=== PATIENT | male | born 1950 | race Caucasian/White ===

== ENCOUNTER 2023-03-22 20:11 | Emergency (ER) | payer BC, SELFPAY ==
[2023-03-22] VITALS (16 sets, daily range): BP systolic 130–185; BP diastolic 79–93; PULSE 86–100; RESP 18–41; O2SAT 95–98; BMI 29.6
[2023-03-22 20:43] LABS: Add Manual Diff / Slide Review NO; Basophils Absolute Auto 100 /uL (0-100); Basophils Percent Auto 0.8 % (0-2); Eosinophils Absolute Auto 300 /uL (0-450); Eosinophils Percent Auto 4.7 % (2-4); Hematocrit 39.6 % (41-53); Hemoglobin 13.6 g/dL (13.5-17.5); Lymphocytes Absolute Auto 2100 /uL (1100-4500); Lymphocytes Percent Auto 30.7 % (25-40); Mean Corpuscular HGB Conc 34.2 % (30-36); Mean Corpuscular Hemoglobin 32.6 PG (26-34); Mean Corpuscular Volume 95.2 fL (80-100); Monocytes Absolute Auto 800 /uL (0-900); Neutrophils Absolute Auto 3500 /uL (1500-7000); Neutrophils Percent Auto 51.8 % (50-75); Platelet Count 202 X10^3/uL (150-400); Red Blood Cell Count 4.16 X10^6/uL (4.5-5.9); Red Cell Distribution Width 13.2 % (11.6-14.8); White Blood Cell Count 6.8 X10^3/uL (4.5-11.0)
[2023-03-22] MEDS: SODIUM CHLORIDE 0.9% 1,000 ML 1000 ML IV ×2 (20:44→22:03)
[2023-03-22 20:56] LABS: Alanine Aminotransferase 32 IU/L (<50); Albumin 3.9 g/dL (3.5-5.0); Albumin Globulin Ratio 1.1 (1.0-2.8); Alkaline Phosphatase 105 U/L (38-126); Aspartate Aminotransferase 36 IU/L (17-59); Bilirubin Total 0.2 mg/dL (0.2-1.3); Blood Urea Nitrogen 17 mg/dL (9-20); Calcium 8.8 mg/dL (8.4-10.2); Carbon Dioxide 22 mmol/L (22-32); Chloride 97 mmol/L (98-107); Estimated Glomerular Filt Rate > 60 mL/min (>60); Globulin 3.4 g/dL (1.7-4.1); Glucose 89 mg/dL (80-110); HEMOLYSIS 48 (0-50); Magnesium 1.9 mg/dL (1.6-2.3); Sodium 131 mmol/L (137-145); Total Protein 7.3 g/dL (6.3-8.2)
[2023-03-22 21:00] LABS: D Dimer 676 ng/ml (<500)
--- NOTE | 2023-03-22 21:44 | ED_ITS ---
HPI - Syncope General Chief Complaint: Syncope Stated Complaint: syncope Time Seen by Provider: 03/22/23 20:14 Source: patient Mode of arrival: EMS History of Present Illness HPI narrative: 72-year-old male nonsmoker with history of hypertension and hyperlipidemia presents by EMS for evaluation of a syncopal episode. He states that he had largely been in his normal state of health and stood up after being seated for some extended period of time, felt like he may fall, had a large coughing episode and then reach forward to prevent a fall, the next thing he noticed was his stating over him telling him he had passed out. On arrival EMS found him awake and alert and oriented. They did orthostatics and found him to be symptomatic upon sitting, an IV was placed and fluids were started. He denies any injury as a consequence, no head, neck or back pain. No blurred vision or trouble with speech. No runny nose or sore throat. Patient recently traveled from [place] in in the aftermath developed COVID which he is just now getting over. He states that at baseline he coughs a lot but it seems to be worse since COVID. He denies any vomiting or diarrhea, no new medications or change in diet. No palpitations or chest pain. No history of blood clot. No lower extremity pain, swelling or redness Related Data Previous Rx's Medication Instructions Recorded allopurinol 300 mg tablet 300 mg PO DAILY #90 tabs 03/15/23 atorvastatin 40 mg tablet 40 mg PO DAILY #90 tabs 03/15/23 losartan 50 mg tablet 50 mg PO DAILY #90 tabs 03/15/23 metoprolol succinate 25 mg 25 mg PO DAILY #90 tabs 03/15/23 tablet,extended release 24 hr Allergies Allergy/AdvReac Type Severity Reaction Status Date / Time No Known Drug Allergies Allergy Unverified 03/15/23 10:55 Review of Systems Review of Systems Narrative: GENERAL: Denies chills, fatigue, malaise, fever, sweats. HEENT: Denies sinus pain, ear pain, sore throat, difficulty swallowing, dizziness. RESPIRATORY: Denies dyspnea, cough, wheezing, hemoptysis, sputum. CARDIOVASCULAR: See HPI GASTROINTESTINAL: Denies nausea, vomiting, abdominal pain, diarrhea, constipation, melena. : Denies dysuria, frequency, incontinence, hematuria, urinary retention. MUSCULOSKELETAL: denies weakness, joint pain, or bony pain SKIN: Denies rash, skin lesions, or other NEUROLOGIC: Denies weakness, headache, numbness, change in speech, confusion, seizures, incoordination. PSYCHIATRIC: No concerning psychosocial issues. 12 point review of systems is negative except for those stated above Patient History Medical History (Updated 03/22/23 @ 23:09 by Sang Gordillo DO) Chronic cough Hypertension Mixed hyperlipidemia Sleep apnea Family History (Updated 03/14/23 @ 20:31 by Mahi Bassett) Father Cancer Mother Cancer Social History Smoking Status: Never smoker Smoking Status: Never smoker Exam Narrative Exam Narrative: GENERAL: [72] year old patient appears stated age. Well-developed patient, in mild distress. HEAD: Atraumatic. Normocephalic. No swelling, redness, contusion or laceration EYES: Pupils equal round and reactive. Extraocular motions intact. No scleral icterus. No injection or drainage. ENT: Nose without bleeding, purulent drainage. Throat without erythema, tonsillar hypertrophy or exudate. Airway patent. NECK: Trachea midline. Non tender, no step-offs or crepitance CARDIOVASCULAR: Regular rate and rhythm without murmurs, gallops, or rubs. RESPIRATORY: Clear to auscultation. Breath sounds equal bilaterally. No wheezes, rales, or rhonchi. GASTROINTESTINAL: Abdomen soft, non-tender, nondistended. EXTREMITIES: No edema or joint tenderness. BACK: Nontender without deformity or crepitance. No flank tenderness. NEURO: AOx3. SKIN: No rash or erythema of visible areas Initial Vital Signs Initial Vital Signs: Vital Signs Pulse Rate 98 H 03/22/23 20:15 Respiratory Rate 18 03/22/23 20:15 Blood Pressure 185/89 H 03/22/23 20:15 Pulse Oximetry 98 03/22/23 20:15 Oxygen Delivery Method Room Air 03/22/23 20:15 Course Orders Ordered: ED Orders 03/22/23 20:14 EKG-12 Lead Stat 03/22/23 20:38 Complete Blood Count AUTO DIFF Stat Comprehensive Metabolic Panel Stat D Dimer Stat Magnesium Stat Discontinued Medications Sodium Chloride (Normal Saline 0.9%) 1,000 mls @ 1,000 mls/hr IV BOLUS ONE Stop: 03/22/23 21:13 Last Infusion: 03/22/23 22:01 Dose: 0 mls/hr Documented By: Admin: 03/22/23 20:44 Dose: 1,000 mls/hr Documented By: OSMAN Sodium Chloride (Normal Saline 0.9%) 1,000 mls @ 1,000 mls/hr IV BOLUS ONE Stop: 03/22/23 22:39 Last Infusion: 03/22/23 22:45 Dose: 0 mls/hr Documented By: Admin: 03/22/23 22:03 Dose: 1,000 mls/hr Documented By: OSMAN Vital Signs Vital signs: Vital Signs - 8 hr 03/22/23 20:15 03/22/23 20:16 03/22/23 20:30 Pulse Rate 98 H 94 H 90 Pulse Rate [Orthostatic Lying] Pulse Rate [Orthostatic Sitting] Pulse Rate [Orthostatic Standing] Respiratory Rate 18 23 23 Blood Pressure 185/89 H Blood Pressure [Orthostatic Lying] Blood Pressure [Orthostatic Sitting] Blood Pressure [Orthostatic Standing] Pulse Oximetry 98 98 97 Oxygen Delivery Method Room Air 03/22/23 21:00 03/22/23 21:39 03/22/23 21:30 Pulse Rate 100 H 90 Pulse Rate [Orthostatic Lying] 89 Pulse Rate [Orthostatic Sitting] 94 H Pulse Rate [Orthostatic Standing] 99 H Respiratory Rate 41 H 19 Blood Pressure Blood Pressure [Orthostatic Lying] 154/86 H Blood Pressure [Orthostatic Sitting] 136/83 Blood Pressure [Orthostatic Standing] 130/80 Pulse Oximetry 95 96 Oxygen Delivery Method 03/22/23 21:34 03/22/23 21:34 03/22/23 21:36 Pulse Rate 89 97 H Pulse Rate [Orthostatic Lying] Pulse Rate [Orthostatic Sitting] Pulse Rate [Orthostatic Standing] Respiratory Rate Blood Pressure 154/86 H Blood Pressure [Orthostatic Lying] Blood Pressure [Orthostatic Sitting] Blood Pressure [Orthostatic Standing] Pulse Oximetry 96 97 Oxygen Delivery Method 03/22/23 21:36 03/22/23 21:37 03/22/23 21:37 Pulse Rate 99 H Pulse Rate [Orthostatic Lying] Pulse Rate [Orthostatic Sitting] Pulse Rate [Orthostatic Standing] Respiratory Rate Blood Pressure 136/83 130/80 Blood Pressure [Orthostatic Lying] Blood Pressure [Orthostatic Sitting] Blood Pressure [Orthostatic Standing] Pulse Oximetry 96 Oxygen Delivery Method 03/22/23 22:00 03/22/23 22:00 03/22/23 22:30 Pulse Rate 86 Pulse Rate [Orthostatic Lying] Pulse Rate [Orthostatic Sitting] Pulse Rate [Orthostatic Standing] Respiratory Rate 20 Blood Pressure 135/83 146/90 H Blood Pressure [Orthostatic Lying] Blood Pressure [Orthostatic Sitting] Blood Pressure [Orthostatic Standing] Pulse Oximetry 96 Oxygen Delivery Method 03/22/23 22:30 03/22/23 22:53 03/22/23 22:45 Pulse Rate 86 88 Pulse Rate [Orthostatic Lying] 88 Pulse Rate [Orthostatic Sitting] 94 H Pulse Rate [Orthostatic Standing] 96 H Respiratory Rate 20 20 Blood Pressure Blood Pressure [Orthostatic Lying] 141/84 H Blood Pressure [Orthostatic Sitting] 143/83 H Blood Pressure [Orthostatic Standing] 142/79 H Pulse Oximetry 97 95 Oxygen Delivery Method 03/22/23 22:45 03/22/23 22:46 03/22/23 22:46 Pulse Rate 93 H Pulse Rate [Orthostatic Lying] Pulse Rate [Orthostatic Sitting] Pulse Rate [Orthostatic Standing] Respiratory Rate 20 Blood Pressure 141/84 H 143/83 H Blood Pressure [Orthostatic Lying] Blood Pressure [Orthostatic Sitting] Blood Pressure [Orthostatic Standing] Pulse Oximetry 95 Oxygen Delivery Method 03/22/23 22:47 03/22/23 22:47 03/22/23 23:00 Pulse Rate 94 H Pulse Rate [Orthostatic Lying] Pulse Rate [Orthostatic Sitting] Pulse Rate [Orthostatic Standing] Respiratory Rate 20 Blood Pressure 142/79 H 153/93 H Blood Pressure [Orthostatic Lying] Blood Pressure [Orthostatic Sitting] Blood Pressure [Orthostatic Standing] Pulse Oximetry 96 Oxygen Delivery Method 03/22/23 23:00 Pulse Rate 91 H Pulse Rate [Orthostatic Lying] Pulse Rate [Orthostatic Sitting] Pulse Rate [Orthostatic Standing] Respiratory Rate 20 Blood Pressure Blood Pressure [Orthostatic Lying] Blood Pressure [Orthostatic Sitting] Blood Pressure [Orthostatic Standing] Pulse Oximetry 95 Oxygen Delivery Method MDM - Syncope Lab Data 03/22/23 20:38 03/22/23 20:38 Labs: Lab Results 03/22/23 03/22/23 03/22/23 Range/Units 20:38 20:38 20:38 WBC 6.8 (4.5-11.0) X10^3/uL RBC 4.16 L (4.5-5.9) X10^6/uL Hgb 13.6 (13.5-17.5) g/dL Hct 39.6 L (41-53) % MCV 95.2 (80-100) fL MCH 32.6 (26-34) PG MCHC 34.2 (30-36) % RDW 13.2 (11.6-14.8) % Plt Count 202 (150-400) X10^3/uL Neut % (Auto) 51.8 (50-75) % Lymph % (Auto) 30.7 (25-40) % Mcdowell % (Auto) 12.0 (3-14) % Eos % (Auto) 4.7 H (2-4) % Baso % (Auto) 0.8 (0-2) % Neut # (Auto) 3500 (2951-4097) /uL Lymph # (Auto) 2100 (1491-2016) /uL Mcdowell # (Auto) 800 (0-900) /uL Eos # (Auto) 300 (0-450) /uL Baso # (Auto) 100 (0-100) /uL D-Dimer 676 H (<500) ng/ml Sodium 131 L (137-145) mmol/L Potassium 4.0 (3.4-5.1) mmol/L Chloride 97 L (98-107) mmol/L Carbon Dioxide 22 (22-32) mmol/L BUN 17 (9-20) mg/dL Creatinine 0.74 (0.66-1.25) mg/dL Estimated GFR > 60 (>60) mL/min BUN/Creatinine Ratio 23.0 H (6-22) Glucose 89 (80-110) mg/dL Calcium 8.8 (8.4-10.2) mg/dL Magnesium 1.9 (1.6-2.3) mg/dL Total Bilirubin 0.2 (0.2-1.3) mg/dL AST 36 (17-59) IU/L ALT 32 (<50) IU/L Alkaline Phosphatase 105 (38-126) U/L Total Protein 7.3 (6.3-8.2) g/dL Albumin 3.9 (3.5-5.0) g/dL Globulin 3.4 (1.7-4.1) g/dL Albumin/Globulin Ratio 1.1 (1.0-2.8) Urine Dip Bedside Urine Glucose Negative Bedside Urine Bilirubin - Negative Bedside Urine Ketone - Negative Urine Specific [place] 1.010 Bedside Urine Occult Blood - Negative Bedside Urine pH 6.0 Bedside Urine Protein - Negative Bedside Urine Urobilinogen - Negative Bedside Urine Nitrite - Negative Bedside Urine Leukocytes - Negative Esterase MDM Narrative Medical decision making narrative: [72] year old patient presents with syncopal episode Multiple etiologies for patient's symptoms considered including, but not limited to: [Dehydration versus vagal response versus cardiac arrhythmia versus pulmonary embolism versus other] Prior Charts reviewed in our EMR Primary Historian: patient Labs reviewed and interpreted by myself: No leukocytosis or left shift, no signs of anemia, electrolytes without any critical findings, D-dimer below age corrected cutoff Patient with reassuring history and physical exam. Syncopal episode with multiple diagnoses as noted above. Pulmonary embolism thought unlikely as D- dimer was below age corrected cutoff, no indication to further pursue with advanced imaging. Arrhythmia considered but patient states he felt it coming, reached out, has reassuring cardiac monitoring, EKG and electrolytes. Patient was relatively orthostatic on arrival for the medics and had a reproducible orthostasis here prior to fluids which improved after fluids. His syncopal episode seems to be likely multifactorial and stems from at least on some level dehydration, a change in position as he had been seated and his episode happened shortly after standing. Furthermore he states he had a coughing episode which likely increased vagal tone. Seizure also considered but thought unlikely as he had no tongue injury, loss of control of bladder and a very rapid return to baseline after his episode as opposed to a more classic postictal phase. Clovis patel agrees with diagnosis and plan, questions answered to his apparent satisfaction. Patient's symptoms improved over duration of stay with above-stated therapies. Findings and discharge diagnosis discussed with patient/family followed by verbalization of understanding Return precautions discussed with patient/family whom verbalize understanding of diagnosis and plan Discharge Plan Departure Patient Disposition: Home Clinical Impression: Syncope, Acute dehydration Instructions: DI for Syncope in Adults (Fainting), DI for Dehydration -- Adult Activity Restrictions/Additional Instructions: *You have been diagnosed with [syncope likely due to a combination of dehydration, coughing, change in position. As we discussed your history and physical exam as well as response to therapies and labs are very reassuring] *What to do: *Please continue to take your regular medications as directed. [ ] New medication prescriptions sent to your pharmacy: [ ] [ ] New medication written as a paper prescription [ ] No new medications given *Please follow up with your primary care provider in 2-3 days, call for an appointment. Let them know you were seen in the Emergency Department and that we ask that you be seen in follow up. We will electronically transmit a record of today's note if your PCP is in our system *If you do not have a primary care provider please contact the [facility] Resource line at [phone]. They will ask some questions about your medical history and help get you set up with a doctor in the community. *Return to Emergency Department if you should have any new, worsening or concerning symptoms, such as [fever greater than 101 F, shaking chills, worsening pain, persistent vomiting or other bothersome symptoms] Prescriptions: No Action allopurinol 300 mg tablet 300 mg PO DAILY Qty: 90 3RF atorvastatin 40 mg tablet 40 mg PO DAILY Qty: 90 3RF losartan 50 mg tablet 50 mg PO DAILY Qty: 90 3RF metoprolol succinate 25 mg tablet extended release 24 hr 25 mg PO DAILY Qty: 90 3RF Referrals: Erlinda Osorio DO [Primary Care Provider] - Stand Alone Forms: Patient Portal/API
== END 2023-03-22 23:20 | disposition home or self-care (01) ==
PROVIDERS: Emergency Provider Emergency Medicine; PCP Family Medicine
DX: R55 Syncope and collapse (principal); E86.0 Dehydration
CPT/HCPCS: 36415; 80053; 81003; 83735; 85025; 85379; 93005; 96360; 96361; 99284

== ENCOUNTER → 2023-04-14 12:37 | Outpatient (CLI) | payer BC, SELFPAY ==
--- NOTE | 2023-04-14 | DI.CT.S_ITS ---
PROCEDURE: CT CHEST WO CON INDICATIONS: Pulmonary fibrosis, unspecified TECHNIQUE: Noncontrast 5 mm thick sections acquired from the pulmonary apices to the posterior costophrenic angles. 1 mm lung window, 5 mm thick coronal and sagittal and 7 mm axial MIP reformats were then acquired. For radiation dose reduction, the following was used: automated exposure control, adjustment of mA and/or kV according to patient size. COMPARISON: None. FINDINGS: Image quality: Excellent. Lungs and pleura: Sub pleural reticulation with areas of bronchiectasis and ground-glass opacity are seen along the peripheral aspect of the bilateral lungs. No definite honeycombing identified. Calcified right middle lobe nodule. No pleural effusions or pneumothorax. Central and peripheral airways are patent and normal in caliber. Mediastinum: Heart size is normal. No pericardial effusion. Coronary artery calcifications. No mediastinal adenopathy by size criteria. Thoracic aorta and central pulmonary arteries are normal in size. Aortic arch is calcified. Esophagus is normal in caliber. No hiatal hernia. Bones and chest wall: No suspicious bony lesions. No vertebral body compression fractures. No axillary or supraclavicular adenopathy by size criteria. Thyroid gland is unremarkable. Abdomen: Visualized upper abdominal solid organs and bowel loops appear normal in the absence of contrast. IMPRESSION: Lung fibrosis with subpleural reticulation, bronchiectasis and ground-glass opacity without definite honeycombing. Further evaluation with high-resolution CT chest can be performed. Consider pulmonology consult. Approved by: Lalitha Lai M.D. on 04/14/2023 at 23:44
== END ==
PROVIDERS: PCP Family Medicine; Referring Provider Internal Medicine Pulmonary Disease; Visit Provider Internal Medicine Pulmonary Disease
DX: J84.10 Pulmonary fibrosis, unspecified (principal); J47.9 Bronchiectasis, uncomplicated
CPT/HCPCS: 71250

== ENCOUNTER → 2023-06-14 12:04 | Outpatient (CLI) | payer BC, SELFPAY ==
[2023-06-14 12:52] LABS: Add Manual Diff / Slide Review NO; Basophils Absolute Auto 0 /uL (0-100); Basophils Percent Auto 0.4 % (0-2); Eosinophils Absolute Auto 300 /uL (0-450); Eosinophils Percent Auto 3.6 % (2-4); Hematocrit 42.9 % (41-53); Hemoglobin 14.9 g/dL (13.5-17.5); Lymphocytes Absolute Auto 1600 /uL (1100-4500); Lymphocytes Percent Auto 22.8 % (25-40); Mean Corpuscular HGB Conc 34.7 % (30-36); Mean Corpuscular Hemoglobin 32.5 PG (26-34); Mean Corpuscular Volume 93.8 fL (80-100); Monocytes Absolute Auto 800 /uL (0-900); Monocytes Percent Auto 10.9 % (3-14); Neutrophils Absolute Auto 4500 /uL (1500-7000); Neutrophils Percent Auto 62.3 % (50-75); Platelet Count 233 X10^3/uL (150-400); Red Blood Cell Count 4.58 X10^6/uL (4.5-5.9); Red Cell Distribution Width 13.3 % (11.6-14.8); White Blood Cell Count 7.2 X10^3/uL (4.5-11.0)
[2023-06-14 13:15] LABS: BUN Creatinine Ratio 17.5 (6-22); Blood Urea Nitrogen 14 mg/dL (9-20); Calcium 9.6 mg/dL (8.4-10.2); Carbon Dioxide 27 mmol/L (22-32); Chloride 94 mmol/L (98-107); Cholesterol 163 mg/dL (140-199); Estimated Glomerular Filt Rate > 60 mL/min (>60); Glucose 106 mg/dL (80-110); HDL Cholesterol 87 mg/dL (40-60); HEMOLYSIS < 15 (0-50); LDL Cholesterol Calculated 62 mg/dL (<100); Potassium 4.8 mmol/L (3.4-5.1); Sodium 130 mmol/L (137-145); Triglycerides 68 mg/dL (35-150)
== END ==
PROVIDERS: PCP Family Medicine; Referring Provider Family Medicine; Visit Provider Family Medicine
DX: Z00.00 Encounter for general adult medical examination without abnormal findings (principal); E78.2 Mixed hyperlipidemia; I10 Essential (primary) hypertension; E87.1 Hypo-osmolality and hyponatremia; J84.10 Pulmonary fibrosis, unspecified
CPT/HCPCS: 36415; 80048; 80061; 85025

== ENCOUNTER → 2023-10-25 11:32 | Outpatient (CLI) | payer BC, SELFPAY ==
[2023-10-25 12:50] LABS: Alanine Aminotransferase 36 IU/L (<50); Albumin 4.4 g/dL (3.5-5.0); Albumin Globulin Ratio 1.5 (1.0-2.8); Alkaline Phosphatase 82 U/L (38-126); Aspartate Aminotransferase 39 IU/L (17-59); Bilirubin Total 0.7 mg/dL (0.2-1.3); Blood Urea Nitrogen 13 mg/dL (9-20); Carbon Dioxide 28 mmol/L (22-32); Chloride 100 mmol/L (98-107); Estimated Glomerular Filt Rate > 60 mL/min (>60); Globulin 2.9 g/dL (1.7-4.1); Glucose 83 mg/dL (80-110); HEMOLYSIS < 15 (0-50); Potassium 4.6 mmol/L (3.4-5.1); Sodium 131 mmol/L (137-145); Total Protein 7.3 g/dL (6.3-8.2)
== END ==
PROVIDERS: PCP Family Medicine; Referring Provider Internal Medicine Critical Care Medicine; Visit Provider Internal Medicine Critical Care Medicine
DX: J84.112 Idiopathic pulmonary fibrosis (principal); R05.3 Chronic cough; I10 Essential (primary) hypertension
CPT/HCPCS: 36415; 80053

== ENCOUNTER → 2023-12-21 09:39 | Outpatient (CLI) | payer BC, SELFPAY ==
--- NOTE | 2023-12-21 09:40 | DI.CT.S_ITS ---
PROCEDURE: CT CHEST HIGH RESOLUTION INDICATIONS: Fibrotic lung disease, eval for change TECHNIQUE: Noncontrast 1.0 and 5.0 mm thick contiguous axial sections from the pulmonary apex to the posterior costophrenic angles, with 7 mm thick coronal and sagittal MIP reformats. 1 mm thick dynamic expiratory images acquired through the upper, mid, and lower lungs. 1.0 mm thick axial sections acquired from the leonie to the posterior costophrenic angles in the prone end-inspiration position. For radiation dose reduction, the following was used: automated exposure control, adjustment of mA and/or kV according to patient size. COMPARISON: [facility], CT, CT CHEST WO CON, 04/14/2023, 12:49. FINDINGS: Image quality: Diagnostic. Lower Neck: No enlarged lymph nodes. Thyroid: No thyroid nodules which require sonographic follow up, per consensus guidelines. Axillae: No enlarged lymph nodes. Chest Wall: Unremarkable. Bones: Unremarkable. Lungs and Pleura: Basilar predominant peripheral reticulation with bronchiectasis. No ground-glass. No subpleural sparing. Early honeycombing is present. Slight interval progression. No suspicious pulmonary nodules. Calcified subpleural nodule in the right upper lobe. Heart: Heart size is mildly enlarged. No pericardial effusion. Thoracic Vessels: The aorta and pulmonary arteries demonstrate normal size. The pulmonary artery is nondilated. Mediastinum and Arti: No enlarged lymph nodes. Esophagus: No wall thickening. No hiatal hernia. Upper Abdomen: Calcified splenic granuloma. IMPRESSION: Slight interval progression of interstitial lung disease, probable UIP pattern. Resolved ground-glass. No evidence of pulmonary hypertension. No suspicious pulmonary nodules on this exam. Dictated by: Lee Junior M.D. on 12/21/2023 at 11:22 Approved by: Lee Junior M.D. on 12/21/2023 at 11:33
== END ==
PROVIDERS: PCP Family Medicine; Referring Provider Internal Medicine Critical Care Medicine; Visit Provider Internal Medicine Critical Care Medicine
DX: J84.112 Idiopathic pulmonary fibrosis (principal); J84.9 Interstitial pulmonary disease, unspecified; I51.7 Cardiomegaly
CPT/HCPCS: 71250

== ENCOUNTER → 2024-04-03 12:15 | Outpatient (CLI) | payer BC, SELFPAY ==
--- NOTE | 2024-04-03 12:16 | DI.ECHO.S_ITS ---
[facility] : : [address] : : [place] : : [id number] : : Phone: [phone] Echocardiogram Report + + :Name: HIMANSHU OWUSU Study Date: 04/03/2024 Height: 68 in : :[facility] ReadingLocation: Weight: 175 lb : : Gender: Male BSA: 1.9 m2 : :: 1950 Age: 73 yrs BP: 106/74 mmHg: :Reason For Study: HYPOTENSION : :Ordering Physician: CHEMO, : :JANICE Performed By: David Sherwood : :Referring: JANICE MCLAIN : + + Interpretation Summary The ejection fraction is estimated to be 60-65%. Diastolic parameters suggest probable normal left ventricular diastolic function and normal filling pressures. The right ventricle is mildly dilated. The right ventricular systolic function is normal. There is moderate aortic valve sclerosis. Pulmonary artery pressures cannot be estimated because of the lack of a measurable TR jet velocity. Procedure: A two-dimensional transthoracic echocardiogram with color flow and Doppler was performed. The study quality was technically good. There is no prior echocardiogram noted for this patient. The patient was in normal sinus rhythm during the exam. Left Ventricle: The left ventricle is normal in size. There is normal left ventricular wall thickness. There is no ventricular septal defect visualized. The ejection fraction is estimated to be 60-65%. There are no focal wall motion abnormalities. Diastolic parameters suggest probable normal left ventricular diastolic function and normal filling pressures. Right Ventricle: The right ventricle is mildly dilated. The right ventricular systolic function is normal. Atria: The left atrial size is normal. Right atrial size is normal. There is no Doppler evidence for an atrial septal defect. Mitral Valve: There is moderate mitral annular calcification. The mitral valve is normal. There is trace mitral regurgitation. Aortic Valve: The aortic valve is trileaflet. The aortic valve is moderately calcified. There is mildly reduced leaflet mobility. There is moderate aortic valve sclerosis. The peak aortic velocity is 1.7 m/sec. The aortic valve mean gradient is 7.2 mmHg. No aortic regurgitation is present. Tricuspid Valve: The tricuspid valve is normal in structure and function. No tricuspid regurgitation. Pulmonary artery pressures cannot be estimated because of the lack of a measurable TR jet velocity. Pulmonic Valve: The pulmonic valve is normal in structure and function. There is trace pulmonic regurgitation. Great Vessels: The aortic root is normal size. The dimensions of the ascending aorta are normal. The pulmonary artery is normal size. The inferior vena cava was not visualized. Pericardium/ Pleura There is no pericardial effusion. MMode/2D Measurements & Calculations LVIDd: 4.3 cm LVOT diam: 2.2 cm LVIDs: 2.8 cm Ao root diam: 3.5 cm FS: 33.3 % asc Aorta Diam: 3.3 cm EPSS: 0.70 cm Ao Arch Diam (Prox Trans): 3.0 cm IVSd: 1.0 cm LVPWd: 1.1 cm LV caballero. diameter/BSA (cm/m^2): 2.2 LV sys. diameter/BSA (cm/m^2): 1.5 LA A2 area: 16.1 cm2 RA long axis: 4.4 cm LA A4 area: 20.4 cm2 RA area: 9.3 cm2 LA length (vol): 5.5 cm RA vol: 16.6 ml LA vol: 51.0 ml RA : 8.6 ml/m2 LA vol index: 26.4 ml/m2 RVD1 (basal): 3.7 cm RVD2 (mid): 3.2 cm TAPSE: 2.0 cm Doppler Measurements & Calculations Ao V2 max: 171.3 cm/sec LVOT Max Ten: 75.3 cm/sec Ao V2 mean: 128.3 cm/sec LV V1 max P.3 mmHg Ao max P.7 mmHg LV V1 VTI: 14.2 cm Ao mean P.2 mmHg EARNEST(I,D): 1.6 cm2 Ao V2 VTI: 34.7 cm EARNEST(V,D): 1.7 cm2 sev ratio: 0.41 EARNEST indexed to BSA (cm^2/m^2): 0.82 MV E max ten: 53.1 cm/sec PA V2 max: 56.3 cm/sec MV A max ten: 99.9 cm/sec PA V2 mean: 38.3 cm/sec MV E/A: 0.53 PA mean P.66 mmHg Med Peak E' Ten: 3.3 cm/sec PA pr(Accel): 27.6 mmHg E/E' med: 16.1 Lat Peak E' Ten: 5.0 cm/sec E/E' lat: 10.7 E/e' average: 13.4 MV dec time: 0.16 sec SV(LVOT): 55.1 ml Reading Physician:04:00 PM
== END ==
PROVIDERS: PCP Family Medicine; Referring Provider Family Medicine; Visit Provider Family Medicine
DX: I34.81 Nonrheumatic mitral (valve) annulus calcification (principal); I35.8 Other nonrheumatic aortic valve disorders; I95.9 Hypotension, unspecified; J84.112 Idiopathic pulmonary fibrosis; R55 Syncope and collapse
CPT/HCPCS: 93306

== ENCOUNTER 2024-04-07 09:09 | Emergency (ER) | payer BC, SELFPAY ==
[2024-04-07] VITALS (14 sets, daily range): BP systolic 105–140; BP diastolic 65–89; PULSE 76–103; RESP 20–24; TEMP 36.4; O2SAT 91–98; BMI 26.6
--- NOTE | 2024-04-07 09:13 | DI.RAD.S_ITS ---
PROCEDURE: XR CHEST 1V INDICATIONS: Shortness of breath TECHNIQUE: One view of the chest was acquired. COMPARISON: [facility], CT, CT CHEST HIGH RESOLUTION, 12/21/2023, 9:58. FINDINGS: Surgical changes and devices: None. Lungs and pleura: Generalized interstitial prominence is seen. Blunting of the costophrenic angles can be seen. No pneumothorax is seen. Low lung volumes are noted. This causes a crowded appearance to the lung markings and limits evaluation. Subpleural fibrotic change is also seen, which is better demonstrated on the prior CT. Mediastinum: Mediastinal contours appear normal. Heart size is mildly enlarged. Bones and chest wall: No suspicious bony lesions. Age-appropriate bony degenerative changes are seen. Overlying soft tissues appear unremarkable. IMPRESSION: Interstitial prominence, pleural effusions, and mild cardiomegaly. CHF is suspected. Dictated by: Jag Brown M.D. on 04/07/2024 at 9:59 Approved by: Jag Brown M.D. on 04/07/2024 at 10:00
--- NOTE | 2024-04-07 09:25 | EKG_ITS ---
[facility] [address] [place] [address] Test Date: 2024-04-07 Pat Name: Andry Dolan Department: [facility] Room: Gender: Male Chief Scientist: VERNELL : 1950 Requested By: Order Number: [id number] Reading MD: Matthew Dunn MD Measurements Intervals Conger Rate: 90 P: 29 MN: 184 QRS: -40 QRSD: 88 T: -2 QT: 374 QTc: 457 Interpretive Statements Normal sinus rhythm Left axis deviation Nonspecific T wave abnormality Electronically Signed On 04-07-2024 17:36:41 PDT by Matthew Dunn MD
--- NOTE | 2024-04-07 09:38 | ED_ITS ---
HPI - SOB/Dyspnea General Chief Complaint: Shortness of Breath/Dyspnea Stated Complaint: Sent from the [facility] hard time breathing Time Seen by Provider: 04/07/24 09:14 Source: patient and family Mode of arrival: Ambulatory Limitations: no limitations History of Present Illness HPI Narrative: 73-year-old male with history of pulmonary fibrosis diagnosed 5-10 years ago, no history of tobacco smoking, unclear etiology per patient of his pulmonary fibrosis, followed by pulmonology, no chronic oxygen use, uses inhalers at home, no systemic steroids, has morning cough for many years, this morning he had increased cough, and felt more short of breath than he does usual each morning. He used home BiPAP unit last night like he always does, no problems with the equipment cleaning or function of the apparatus. He denies chest pain. He denies swelling of legs. He denies history of blood clots. He has not had any change in medication or missed doses of any medication. He uses the same lung medications at home, has supply of these medications. Referred for further evaluation from walk-in clinic. Related Data Previous Rx's Medication Instructions Recorded allopurinol 300 mg tablet 300 mg PO DAILY #90 tabs 03/15/23 losartan 50 mg tablet 50 mg PO DAILY #90 tabs 03/15/23 metoprolol succinate 25 mg 25 mg PO DAILY #90 tabs 03/15/23 tablet,extended release 24 hr nintedanib 150 mg capsule (Ofev) 150 mg PO Q12H #60 caps 10/25/23 albuterol sulfate 1.25 mg/3 mL 1.25 mg (3 mL) inhalation Q4-6H 03/01/24 solution for nebulization PRN shortness of breath or wheezing #90 mL atorvastatin 40 mg tablet 40 mg PO DAILY #90 tabs 03/26/24 Allergies Allergy/AdvReac Type Severity Reaction Status Date / Time No Known Drug Allergies Allergy Unverified 03/13/24 09:43 Review of Systems Review of Systems Narrative: see HPI Patient History Medical History (Updated 04/07/24 @ 11:58 by Gil Metcalf MD) Pulmonary fibrosis Mixed hyperlipidemia Sleep apnea Chronic cough Hypertension Family History Father Cancer Mother Cancer Social History Smoking Status: Never smoker Smoking Status: Never smoker alcohol intake frequency: 0-2 drinks per day Substance Use Type: does not use Exam Narrative Exam Narrative: GENERAL: Well-developed patient, in mild distress. HEAD: Atraumatic. Normocephalic. EYES: Pupils equal round and reactive. Extraocular motions intact. No scleral icterus. No injection or drainage. ENT: Nose without bleeding, purulent drainage. Throat without erythema, tonsillar hypertrophy or exudate. Airway patent. NECK: Trachea midline. Non tender CARDIOVASCULAR: Regular rate and rhythm without murmurs, gallops, or rubs. RESPIRATORY: Bibasilar fine crackles, no respiratory distress, speaks in full sentences, no retractions, no wheezing obvious. AP chest diameter not particularly increased. GASTROINTESTINAL: Abdomen soft, non-tender, nondistended. EXTREMITIES: No edema or joint tenderness. No clubbing fingers or toes noted. BACK: Nontender without deformity or crepitance. No flank tenderness. NEURO: AOx3. Motor functions grossly nonfocal SKIN: No rash or erythema of visible areas Initial Vital Signs Initial Vital Signs: Vital Signs Pulse Oximetry 92 04/07/24 09:15 Course Orders Ordered: Discontinued Medications Albuterol (Albuterol 2.5 Mg/3 Ml Neb (Adult)) 2.5 mg INH NOW ONE Stop: 04/07/24 10:46 Last Admin: 04/07/24 14:00 Dose: Not Given Documented By: AISHA Vital Signs Vital signs: Vital Signs - 8 hr 04/07/24 09:15 04/07/24 09:16 04/07/24 09:16 Temperature Pulse Rate 103 H Respiratory Rate Blood Pressure 126/76 Pulse Oximetry 92 91 Oxygen Delivery Method 04/07/24 09:20 04/07/24 09:30 04/07/24 09:32 Temperature 97.6 F Pulse Rate 92 H 93 H 94 H Respiratory Rate 20 Blood Pressure 126/76 Pulse Oximetry 97 97 98 Oxygen Delivery Method Room Air 04/07/24 09:32 04/07/24 10:00 04/07/24 10:01 Temperature Pulse Rate 86 88 Respiratory Rate 22 Blood Pressure 139/69 Pulse Oximetry 95 94 Oxygen Delivery Method 04/07/24 10:01 04/07/24 10:30 04/07/24 10:30 Temperature Pulse Rate 82 Respiratory Rate 23 Blood Pressure 105/65 108/70 Pulse Oximetry 96 Oxygen Delivery Method Room Air 04/07/24 11:00 04/07/24 11:00 Temperature Pulse Rate 79 Respiratory Rate 24 Blood Pressure 114/75 Pulse Oximetry 97 Oxygen Delivery Method MDM - SOB/Dyspnea Lab Data Attestation: I reviewed the patient's lab results. Lab results narrative: White blood cell count 53387, hemoglobin 15, platelets adequate. Serum CO2 24 not increased or decreased. Sodium 132 with glucose 126, potassium unremarkable. LFTs normal. Troponin negative. BNP 279 not elevated. 04/07/24 09:33 04/07/24 09:33 Labs: Lab Results 04/07/24 04/07/24 04/07/24 Range/Units 09:18 09:33 11:33 WBC 11.4 H (4.5-11.0) X10^3/uL RBC 4.66 (4.5-5.9) X10^6/uL Hgb 15.0 (13.5-17.5) g/dL Hct 44.9 (41-53) % MCV 96.3 (80-100) fL MCH 32.3 (26-34) PG MCHC 33.5 (30-36) % RDW 14.7 (11.6-14.8) % Plt Count 277 (150-400) X10^3/uL Neut % (Auto) 74.9 (50-75) % Lymph % (Auto) 13.8 L (25-40) % Martin % (Auto) 8.2 (3-14) % Eos % (Auto) 2.3 (2-4) % Baso % (Auto) 0.8 (0-2) % Neut # (Auto) 8500 H (7686-5052) /uL Lymph # (Auto) 1600 (8986-0736) /uL Martin # (Auto) 900 (0-900) /uL Eos # (Auto) 300 (0-450) /uL Baso # (Auto) 100 (0-100) /uL PT 11.6 (9.4-12.5) SECONDS INR 1.0 (0.9-1.3) Sodium 132 L (137-145) mmol/L Potassium 4.6 (3.4-5.1) mmol/L Chloride 99 (98-107) mmol/L Carbon Dioxide 24 (22-32) mmol/L BUN 13 (9-20) mg/dL Creatinine 0.83 (0.66-1.25) mg/dL Estimated GFR > 60 (>60) mL/min BUN/Creatinine Ratio 15.7 (6-22) Glucose 126 H (80-110) mg/dL Lactate 2.4 H 1.4 (0.7-2.1) mmol/L Calcium 9.0 (8.4-10.2) mg/dL Total Bilirubin 0.9 (0.2-1.3) mg/dL AST 37 (17-59) IU/L ALT 29 (<50) IU/L Alkaline Phosphatase 103 (38-126) U/L Troponin I < 0.012 (0.01-0.034) ng/mL NT-Pro-B Natriuret Pep 279 H (<125) pg/mL Total Protein 8.0 (6.3-8.2) g/dL Albumin 4.4 (3.5-5.0) g/dL Globulin 3.6 (1.7-4.1) g/dL Albumin/Globulin Ratio 1.2 (1.0-2.8) SARS-CoV-2 (PCR) Negative (Negative) Influenza A (RT-PCR) Flu a negative (NEGATIVE) Influenza B (RT-PCR) Flu b negative (NEGATIVE) RSV (PCR) Negative (Negative) Imaging Data Chest x-ray: Radiologist's Impression: [address] [address] XRay Report Signed Patient: Andry Dolan MR#: [id number] : 1950 Acct:[id number] Age/Sex: 73 / M Date of Service: 04/07/24 Loc: ED Accession Number: [id number] Procedure: XR chest 1V Ordering Provider: Gil Metcalf MD PROCEDURE: XR CHEST 1V INDICATIONS: Shortness of breath TECHNIQUE: One view of the chest was acquired. COMPARISON: [facility], CT, CT CHEST HIGH RESOLUTION, 12/21/2023, 9:58. FINDINGS: Surgical changes and devices: None. Lungs and pleura: Generalized interstitial prominence is seen. Blunting of the costophrenic angles can be seen. No pneumothorax is seen. Low lung volumes are noted. This causes a crowded appearance to the lung markings and limits evaluation. Subpleural fibrotic change is also seen, which is better demonstrated on the prior CT. Mediastinum: Mediastinal contours appear normal. Heart size is mildly enlarged. Bones and chest wall: No suspicious bony lesions. Age-appropriate bony degenerative changes are seen. Overlying soft tissues appear unremarkable. IMPRESSION: Interstitial prominence, pleural effusions, and mild cardiomegaly. CHF is suspected. Dictated by: Jag Brown M.D. on 04/07/2024 at 9:59 Approved by: Jag Brown M.D. on 04/07/2024 at 10:00 ECG Data Attestation: I personally reviewed and interpreted this ECG as follows: Interpretation: Normal sinus rhythm with rate of 90, no obvious ST segment elevation or depression changes. CA 184, QRS 88, QTC 457. MDM Narrative Medical decision making narrative: 73-year-old male with history of pulmonary fibrosis, chronic morning cough, no oxygen requirement, uses home BiPAP at night, uses home SVN machine bronchodilators, not on systemic steroids, not on any immunosuppressive therapies, noted to have increased shortness of breath and more cough this morning. Sent from walk-in clinic for further evaluation. No respiratory distress. Bibasilar crackles on examination might be his baseline, no lower extremity edema. Screening EKG without obvious ischemic changes. Troponin other lab studies pending. White blood cell count 21001 noted, other lab studies negative, troponin negative. Chest x-ray still pending at this time. Chest x-ray mentioned interstitial prominence, consideration for CHF, however clinically patient does not seem to have CHF, BNP not elevated. Interstitial changes likely from reported history pulmonary fibrosis. We will repeat troponin, if negative anticipate discharge with current home respiratory therapy regimen. Trial of ambulation, tolerated well. Patient left before any repeat Trop drawn. Left AMA Discharge Plan Departure Patient Disposition: Left Against Medical Advice Clinical Impression: Shortness of breath, History of pulmonary fibrosis Activity Restrictions/Additional Instructions: History of pulmonary fibrosis, daily morning cough, morning shortness of breath, using same BiPAP overnight for obstructive sleep apnea, not usually on oxygen during the days, increased shortness of breath this morning. Chest x-ray showed interstitial thickening, radiology report described interstitial thickening that might be due to congestive heart failure. However, clinically you did not seem to be in heart failure, and your BNP blood tests was normal, not consistent with heart failure, the chest x-ray finding interstitial thickening might be related to your pulmonary fibrosis. There was no mention of any lobar bacterial infection pneumonia like changes on the chest x-ray. Remainder of your workup unremarkable. No oxygen requirement. You have home breathing treatment medications, adequate supply and equipment. Recheck with your regular doctor Tuesday if symptoms persist over your recent baseline morning symptoms. Return earlier to this/nearest emergency department for any change worsening symptoms or any concerns prior Prescriptions: No Action albuterol sulfate 1.25 mg/3 mL solution for nebulization 1.25 mg inhalation Q4-6H PRN (Reason: shortness of breath or wheezing) Qty: 90 6RF atorvastatin 40 mg tablet 40 mg PO DAILY Qty: 90 3RF allopurinol 300 mg tablet 300 mg PO DAILY Qty: 90 3RF losartan 50 mg tablet 50 mg PO DAILY Qty: 90 3RF metoprolol succinate 25 mg tablet extended release 24 hr 25 mg PO DAILY Qty: 90 3RF Ofev 150 mg capsule 150 mg PO Q12H Qty: 60 3RF Referrals: Erlinda Osorio DO [Primary Care Provider] - Stand Alone Forms: Patient Portal/API, Against Medical Advice
[2024-04-07 09:41] LABS: Add Manual Diff / Slide Review NO; Basophils Absolute Auto 100 /uL (0-100); Basophils Percent Auto 0.8 % (0-2); Eosinophils Absolute Auto 300 /uL (0-450); Eosinophils Percent Auto 2.3 % (2-4); Hematocrit 44.9 % (41-53); Lymphocytes Absolute Auto 1600 /uL (1100-4500); Lymphocytes Percent Auto 13.8 % (25-40); Mean Corpuscular HGB Conc 33.5 % (30-36); Mean Corpuscular Hemoglobin 32.3 PG (26-34); Mean Corpuscular Volume 96.3 fL (80-100); Monocytes Absolute Auto 900 /uL (0-900); Monocytes Percent Auto 8.2 % (3-14); Neutrophils Absolute Auto 8500 /uL (1500-7000); Neutrophils Percent Auto 74.9 % (50-75); Platelet Count 277 X10^3/uL (150-400); Red Blood Cell Count 4.66 X10^6/uL (4.5-5.9); Red Cell Distribution Width 14.7 % (11.6-14.8); White Blood Cell Count 11.4 X10^3/uL (4.5-11.0)
[2024-04-07 09:48] LABS: Prothrombin Time 11.6 SECONDS (9.4-12.5)
[2024-04-07 09:56] LABS: Alanine Aminotransferase 29 IU/L (<50); Albumin 4.4 g/dL (3.5-5.0); Albumin Globulin Ratio 1.2 (1.0-2.8); Alkaline Phosphatase 103 U/L (38-126); Aspartate Aminotransferase 37 IU/L (17-59); BUN Creatinine Ratio 15.7 (6-22); Bilirubin Total 0.9 mg/dL (0.2-1.3); Blood Urea Nitrogen 13 mg/dL (9-20); Carbon Dioxide 24 mmol/L (22-32); Chloride 99 mmol/L (98-107); Estimated Glomerular Filt Rate > 60 mL/min (>60); Globulin 3.6 g/dL (1.7-4.1); Glucose 126 mg/dL (80-110); Potassium 4.6 mmol/L (3.4-5.1); Sodium 132 mmol/L (137-145)
[2024-04-07 09:57] LABS: Lactate (Lactic Acid) 2.4 mmol/L (0.7-2.1)
[2024-04-07 10:03] LABS: HEMOLYSIS 51 (0-50)
[2024-04-07 10:08] LABS: NT-proBNP (BNP-Adult 18+) 279 pg/mL (<125); Troponin I < 0.012 ng/mL (0.01-0.034)
[2024-04-07 10:33] LABS: Influenza A - CEPHEID Flu A NEGATIVE (NEGATIVE); Influenza B - CEPHEID Flu B NEGATIVE (NEGATIVE); Respiratory Syncytial Virus Negative (Negative)
[2024-04-07 10:47] LABS: COVID-19 CEPHEID 4-PLEX PCR Negative (Negative)
[2024-04-07 11:13] LABS: Reflexed Lactate in 2 Hours Y
[2024-04-07 11:48] LABS: Lactate 2HR (Lactic Acid Rflx) 1.4 mmol/L (0.7-2.1)
== END 2024-04-07 14:31 | disposition left against medical advice (07) ==
PROVIDERS: Emergency Provider Emergency Medicine; PCP Family Medicine; Referring Provider Emergency Medicine
DX: R06.02 Shortness of breath (principal); R05.9 Cough, unspecified; Z11.52 Encounter for screening for COVID-19; Z87.09 Personal history of other diseases of the respiratory system
CPT/HCPCS: 0241U; 36415; 71045; 80053; 83605; 83880; 84484; 85025; 85610; 93005; 93010; 99283; 99284

== ENCOUNTER 2024-04-25 12:30 | Outpatient (RCR) | payer BC, SELFPAY | END 2024-04-25 13:30 | LOC: PUL 12:30 | PROVIDERS: PCP Family Medicine; Referring Provider Internal Medicine Critical Care Medicine; Visit Provider Internal Medicine Critical Care Medicine | DX: J84.10 Pulmonary fibrosis, unspecified (principal) | CPT/HCPCS: G0237; G0238 ==

== ENCOUNTER → 2024-06-07 08:30 | Outpatient (CLI) | payer BC, SELFPAY | PROVIDERS: PCP Family Medicine; Referring Provider Internal Medicine Critical Care Medicine; Visit Provider Internal Medicine Critical Care Medicine | DX: J84.112 Idiopathic pulmonary fibrosis (principal); R94.2 Abnormal results of pulmonary function studies | CPT/HCPCS: 94060; 94726; 94729 ==